=== PATIENT | female | born 1980 | race Caucasian/White ===

== ENCOUNTER 2017-08-12 10:13 | Emergency (ER) | payer MEDICAID ==
[~2017-08-12] VITALS: Ht 167.6 cm; Wt 100.0 kg
[~2017-08-12 10:13] MED LIST: ASPI81TA82 PO; CALC500T19 PO
[2017-08-12 10:14] VITALS: BP 212/114; PULSE 95; RESP 20; TEMP 99; O2SAT 99
[2017-08-12] MEDS ORDERED: metroNIDAZOLE 500 MG TAB PO ONE (10:45)
[2017-08-12] MEDS ORDERED: cefTRIAXone 250 MG VIAL IM ONE (10:45)
[2017-08-12] MEDS ORDERED: LIDOCAINE HCL 1% 50 ML VIAL IM ONE (10:45)
[2017-08-12] MEDS ORDERED: ONDANSETRON ODT 4 MG TAB PO ONE (10:45)
[2017-08-12] MEDS ORDERED: AZITHROMYCIN PWD FOR SUSP 1 GM PACKET PO ONE (10:45)
[2017-08-12] MEDS ORDERED: VALT1TAB PO (11:01)
--- NOTE | 2017-08-12 11:01 | PD ---
HPI Chief Complaint: Sales Support Specialist Problem/Complaint Time Seen by Provider: 10:34 Travel History International Travel<30 days: No Contact w/Intl Traveler<30days: No Traveled to known affect area: No History of Present Illness HPI So 37-year-old woman who presents to the emergency department complaining of vaginal sores and vaginal discharge as well as a sore throat, possible her tonsils, and scattered skin lesions that started after she has any sexual partner 7 days ago. The symptoms been ongoing for the past 4 days. She states she has a history of trichomonas in the past. She otherwise had been feeling generally well and healthy. No abdominal pain. No fevers. No other complaints. History Past Medical History Medical History: Denies Significant Hx : 3 Para: 1 Social History Alcohol Use: No Tobacco Use: No Allergies-Medications (Allergen,Severity, Reaction): Coded Allergies: codeine (Verified Adverse Reaction, Severe, GI COMPLAINT, 08/12/17) Reported Meds & Prescriptions Reported Meds & Active Scripts Active No Active Prescriptions or Reported Medications Review of Systems Except as stated in HPI: all other systems reviewed are Neg Physical Exam Narrative GENERAL: Well-appearing 37-year-old woman, no acute distress. SKIN: Focused skin assessment warm/dry. NECK: Trachea midline. No JVD. CARDIOVASCULAR: Regular rate and rhythm. No murmur appreciated. RESPIRATORY: No accessory muscle use. Clear to auscultation. Breath sounds equal bilaterally. GASTROINTESTINAL: Abdomen soft, non-tender, nondistended. Hepatic and splenic margins not palpable. MUSCULOSKELETAL: No obvious deformities. No clubbing. No cyanosis. No edema. NEUROLOGICAL: Awake and alert. No obvious cranial nerve deficits. Motor grossly within normal limits. Normal speech. PSYCHIATRIC: Appropriate mood and affect; insight and judgment normal. Data Data Last Documented VS Vital Signs Date Time Temp Pulse Resp B/P (MAP) Pulse Ox O2 Delivery O2 Flow Rate FiO2 08/12/17 10:14 99.0 95 20 212/114 (146) 99 Room Air Orders Orders Azithromycin Powd Pack (Zithromax Powd P (08/12/17 10:45) Ondansetron Odt (Zofran Odt) (08/12/17 10:45) Ceftriaxone Inj (Rocephin Inj) (08/12/17 10:45) Lidocaine 1% Inj (50 Ml) (Xylocaine 1% I (08/12/17 10:45) Metronidazole (Flagyl) (08/12/17 10:45) Gc And Chlamydia Pcr (08/12/17 10:50) Wet Prep Profile (08/12/17 10:50) MDM Medical Decision Making Medical Screen Exam Complete: Yes Emergency Medical Condition: Yes Differential Diagnosis Herpes, cervicitis, PID, other Narrative Course 37-year-old woman was cervicitis and herpes. Recommend treatment. 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 Any sexual partners you have should be tested and treated as well. You should not have sex until you have no symptoms, and your partners tested and treated as well. Med/Other Pt SpecificInfo: No Change to Meds Scripts Valacyclovir (Valtrex) 1,000 Mg Tab 1000 MG PO BID for Mgmt Viral Infection for 10 Days, #2 TAB 0 Refills Prov: Hector Mckeon MD 08/12/17 Disposition: 01 DISCHARGE HOME Condition: Stable Hector Mckeon MD Aug 12, 2017 11:01
[2017-08-12 11:25] VITALS: BP 170/83; TEMP 97.8
[2017-08-12] MEDS ORDERED: AMLO5 PO (11:35)
[2017-08-12 13:50] LABS: CHLAMYDIA PCR DETECTED (NOT DETECT); NEISSERIA PCR NOT DETECTED (NOT DETECT)
== END 2017-08-12 11:25 | disposition home or self-care (01) ==
LOC: NEPD 10:13
DX: A60.04 Herpesviral vulvovaginitis (principal); A56.09 Other chlamydial infection of lower genitourinary tract
CPT/HCPCS: 87210; 87491; 87591; 96372; 99284; J0696